=== PATIENT | female | born 1960 | race African-American/Black ===

== ENCOUNTER 2017-07-03 00:28 | Emergency (ER) | payer MEDICAID ==
[~2017-07-03] VITALS: Ht 165.1 cm; Wt 59.0 kg
[2017-07-03] MEDS ORDERED: ONDANSETRON HCL 4MG/2ML VIAL IV STA (02:02)
[2017-07-03] MEDS ORDERED: KETOROLAC 30MG/ML VIAL IV STA (02:02)
[2017-07-03] MEDS ORDERED: SODIUM CHLORIDE 0.9% 1,000 ML IV ONE (02:02)
[2017-07-03 02:20] LABS: BASOPHILS % 0.2 % (0.0-2.0); HEMATOCRIT. 40.8 % (36.0-48.0); HEMOGLOBIN. 13.5 g/dL (12.0-16.0); LYMPHOCYTES % 7.6 % (20.0-50.0); MEAN CORPUSCULAR HEMOGLOBIN 26.6 pg (28.0-32.0); MEAN CORPUSCULAR VOLUME 80.4 fL (81.0-99.0); MEAN PLATELET VOLUME 7.5 fl (7.4-10.4); MONOCYTES % 11.7 % (2.0-8.0); NEUTROPHILS % 80.5 % (40.0-76.0); PLATELET 384 x1000/uL (130-400); RED BLOOD CELL COUNT 5.07 mill/uL (4.2-5.4); RED CELL DISTRIBUTION WIDTH 15.2 % (11.6-14.6)
[2017-07-03 02:23] LABS: CHLORIDE 97 mEq/L (98-107); INR 1.1; PROTHROMBIN TIME 11.4 sec (9.4-11.6)
[2017-07-03 04:53] LABS: CLARITY URINE CLEAR (CLEAR); COLOR URINE YELLOW (YELLOW); KETONES URINE 1+ (NEGATIVE); LEUKOCYTE ESTERASE URINE 1+ (NEGATIVE); NITRITE URINE NEGATIVE (NEGATIVE); OCCULT BLOOD URINE 1+ (NEGATIVE); PROTEIN URINE NEGATIVE (NEGATIVE); SPECIFIC GRAVITY URINE 1.017 (1.005-1.030); UROBILINOGEN URINE 0.2 E.U./dL (0.2-1.0)
[2017-07-03 05:00] VITALS: BP 122/74
[2017-07-03] MEDS ORDERED: ALBUTEROL (0.083%) 2.5MG/3ML NEB HHN ONE (05:30)
== END 2017-07-03 06:15 | disposition home or self-care (01) ==
LOC: ER 03:46
DX: H20.00 Unspecified acute and subacute iridocyclitis (principal); R10.13 Epigastric pain; I10 Essential (primary) hypertension; F17.200 Nicotine dependence, unspecified, uncomplicated; Z88.0 Allergy status to penicillin
CPT/HCPCS: 36415; 74176; 80053; 81001; 83690; 85025; 85610; 96361; 96374; 96375; 99285; J1885; J2405; J7030; J7611; Z7610

== ENCOUNTER 2017-11-20 07:44 | Inpatient (IN) | payer MEDICAID ==
[~2017-11-20] VITALS: Ht 154.9 cm; Wt 53.1 kg
[2017-11-20] MEDS ORDERED: ALBU18HF2 IH (07:50)
[2017-11-20] MEDS ORDERED: FAMOTIDINE 20MG/2ML VIAL IV STA (08:00)
[2017-11-20] MEDS ORDERED: ONDANSETRON HCL 4MG/2ML VIAL IV STA (08:00)
[2017-11-20] MEDS ORDERED: SODIUM CHLORIDE 0.9% 1,000 ML IV ONE (08:00)
[2017-11-20] MEDS ORDERED: MORPHINE SULFATE 4 MG/ML CPJ (NOT FOR IM USE) IV STA (08:00)
[2017-11-20 08:36] LABS: BASOPHILS % 0.2 % (0.0-2.0); EOSINOPHILS % 0.1 % (0.0-5.0); HEMATOCRIT. 40.1 % (36.0-48.0); HEMOGLOBIN. 13.5 g/dL (12.0-16.0); MEAN CORPUSCULAR HEMOGLOBIN 26.1 pg (28.0-32.0); MEAN CORPUSCULAR VOLUME 77.6 fL (81.0-99.0); MEAN PLATELET VOLUME 7.1 fl (7.4-10.4); MONOCYTES % 3.9 % (2.0-8.0); NEUTROPHILS % 86.8 % (40.0-76.0); PLATELET 454 x1000/uL (130-400); RED BLOOD CELL COUNT 5.17 mill/uL (4.2-5.4); RED CELL DISTRIBUTION WIDTH 15.2 % (11.6-14.6)
[2017-11-20 08:42] LABS: CHLORIDE 94 mEq/L (98-107)
[2017-11-20 08:46] LABS: INR 1.1; PARTIAL THROMBOPLASTIN TIME 27.8 sec (23.4-31.0); PROTHROMBIN TIME 11.5 sec (9.4-11.6)
[2017-11-20 08:48] LABS: ETHANOL BLOOD < 10 mg/dL
[2017-11-20 09:32] LABS: CLARITY URINE CLEAR (CLEAR); COLOR URINE YELLOW (YELLOW); KETONES URINE TRACE (NEGATIVE); LEUKOCYTE ESTERASE URINE TRACE (NEGATIVE); NITRITE URINE NEGATIVE (NEGATIVE); OCCULT BLOOD URINE TRACE (NEGATIVE); PH URINE 7.5 (4.5-8.0); PROTEIN URINE NEGATIVE (NEGATIVE); SPECIFIC GRAVITY URINE 1.009 (1.005-1.030); UROBILINOGEN URINE 0.2 E.U./dL (0.2-1.0)
[2017-11-20 09:57] LABS: *AMPHETAMINES SCREEN URINE NEGATIVE (NEGATIVE); *BARBITURATES SCREEN URINE NEGATIVE (NEGATIVE); *BENZODIAZEPINES SCREEN URINE NEGATIVE (NEGATIVE)
[2017-11-20 09:58] LABS: CANNABINOID URINE SCREEN PRESUMTIVE POSITIVE (NEGATIVE); METHADONE URINE SCREEN NEGATIVE (NEGATIVE); OPIATES URINE SCREEN PRESUMTIVE POSITIVE (NEGATIVE); PHENCYCLIDINE URINE SCREEN NEGATIVE (NEGATIVE)
[2017-11-20 10:00] LABS: *COCAINE SCREEN URINE NEGATIVE (NEGATIVE)
[2017-11-20] MEDS ORDERED: IOHEXOL-300 100 ML BOTTLE ONE (10:15)
[2017-11-20] MEDS ORDERED: POTASSIUM CHLORIDE 20MEQ TABLET SR PO ONE (11:00)
[2017-11-20] MEDS ORDERED: SODIUM CHLORIDE 0.9% 1,000 ML IV SCH (11:27)
[2017-11-20] MEDS ORDERED: CLONIDINE 0.1MG TABLET PO PRN (11:30)
[2017-11-20] MEDS ORDERED: ONDANSETRON HCL 4MG/2ML VIAL IV PRN (11:30)
[2017-11-20] MEDS ORDERED: DOCUSATE SODIUM 100MG CAPSULE PO PRN (11:30)
[2017-11-20] MEDS ORDERED: IPRATROPIUM/ALBUTEROL 0.5-3(2.5)MG/3ML NEB INH PRN (11:30)
[2017-11-20] MEDS ORDERED: ACETAMINOPHEN 325MG TABLET PO PRN (11:30)
[2017-11-20] MEDS ORDERED: MAGNESIUM/ALUMINUM HYDROXIDE/SIMETHICONE 30ML UDC PO PRN (11:30)
[2017-11-20 12:15] VITALS: BP 166/87
[2017-11-20] MEDS: ENOXAPARIN 40MG/0.4ML SYR SUBCUT SCH (12:30)
[2017-11-20] MEDS ORDERED: CARI350T PO (12:39)
[2017-11-20] MEDS ORDERED: tylenol 3 PO (12:39)
[2017-11-20] MEDS ORDERED: AMLO5TAB4 PO (12:39)
[2017-11-20 13:00] VITALS: BP 166/87
[2017-11-20] MEDS ORDERED: LORAZEPAM 2MG/ML CPJ IV PRN (13:15)
[2017-11-20] MEDS: HYDROCODONE/ACETAMINOPHEN 5/325MG TABLET PO PRN (13:47)
[2017-11-20] MEDS: NICOTINE 14MG PATCH TD SCH (13:48)
[2017-11-20 16:00] VITALS: BP 157/84
[2017-11-20] MEDS ORDERED: PNEUMOCOCCAL 23-VAL P-SAC VAC 0.5 ML IM ONE (16:45)
[2017-11-20] MEDS ORDERED: CYCLOBENZAPRINE 10MG TABLET PO PRN (17:00)
[2017-11-20 17:23] LABS: CREATINE KINASE 205 IU/L (26-192)
[2017-11-20 17:24] LABS: CREATINE KINASE MB FRACTION 1.4 ng/mL (0.5-3.6)
[2017-11-20] MEDS: MORPHINE SULFATE 4 MG/ML CPJ (NOT FOR IM USE) IV PRN (19:54)
[2017-11-20 20:00] VITALS: BP 135/73
[2017-11-20] MEDS: BUDESONIDE 0.5MG/2ML NEB HHN SCH (21:20)
[2017-11-20] MEDS: IPRATROPIUM/ALBUTEROL 0.5-3(2.5)MG/3ML NEB HHN SCH ×2 (21:21→22:10)
[2017-11-21] VITALS (14 sets, daily range): BP systolic 108–186; BP diastolic 57–111
[2017-11-21 00:02] LABS: CREATINE KINASE 167 IU/L (26-192)
[2017-11-21 00:03] LABS: CREATINE KINASE MB FRACTION 0.9 ng/mL (0.5-3.6)
[2017-11-21] MEDS: MORPHINE SULFATE 4 MG/ML CPJ (NOT FOR IM USE) IV PRN ×3 (00:06→16:19)
[2017-11-21] MEDS: IPRATROPIUM/ALBUTEROL 0.5-3(2.5)MG/3ML NEB HHN SCH ×5 (01:10→22:10)
[2017-11-21 06:57] LABS: BASOPHILS % 0.2 % (0.0-2.0); HEMATOCRIT. 38.1 % (36.0-48.0); HEMOGLOBIN. 12.9 g/dL (12.0-16.0); LYMPHOCYTES % 11.2 % (20.0-50.0); MEAN CORPUSCULAR HEMOGLOBIN 26.3 pg (28.0-32.0); MEAN CORPUSCULAR VOLUME 77.7 fL (81.0-99.0); MEAN PLATELET VOLUME 7.1 fl (7.4-10.4); MONOCYTES % 6.4 % (2.0-8.0); NEUTROPHILS % 82.2 % (40.0-76.0); PLATELET 426 x1000/uL (130-400); RED CELL DISTRIBUTION WIDTH 15.5 % (11.6-14.6)
[2017-11-21 06:59] LABS: CHLORIDE 95 mEq/L (98-107)
[2017-11-21 07:07] LABS: LDL CHOLESTEROL 121 mg/dL (5-100)
[2017-11-21 07:08] LABS: HDL CHOLESTEROL 66 mg/dL (40-59)
[2017-11-21] MEDS: BUDESONIDE 0.5MG/2ML NEB HHN SCH ×2 (07:52→22:10)
[2017-11-21] MEDS: ENOXAPARIN 40MG/0.4ML SYR SUBCUT SCH (08:01)
[2017-11-21] MEDS ORDERED: SODIUM BICARBONATE 4% (2.4MEQ) 5ML VIAL IV ONE (08:57)
[2017-11-21] MEDS ORDERED: LIDOCAINE HCL/PF 1% 10 MG/ML 5ML VIAL ONE (08:59)
[2017-11-21] MEDS ORDERED: FENTANYL CITRATE/PF 50MCG/ML 2ML VIAL ONE (09:39)
[2017-11-21] MEDS ORDERED: FENTANYL CITRATE/PF 50MCG/ML 2ML VIAL IV ONE (10:00)
[2017-11-21] MEDS: NICOTINE 14MG PATCH TD SCH (11:36)
[2017-11-21] MEDS: HYDROCODONE/ACETAMINOPHEN 5/325MG TABLET PO PRN ×3 (11:36→23:21)
[2017-11-21] MEDS ORDERED: POTASSIUM CHLORIDE 20MEQ TABLET SR PO SCH (12:00)
[2017-11-21 12:43] LABS: CHLORIDE 95 mEq/L (98-107)
[2017-11-21] MEDS: SODIUM CHL 0.45% + KCL 20MEQ/L 1,000 ML IV SCH ×2 (16:17→23:00)
[2017-11-21] MEDS: AMLODIPINE 5MG TABLET PO SCH (18:53)
[2017-11-21] MEDS ORDERED: IOHEXOL-300 100 ML BOTTLE ONE (20:32)
[2017-11-21] MEDS: ATORVASTATIN CALCIUM 40MG TABLET PO SCH (21:11)
[2017-11-22 00:09] VITALS: BP 125/65
[2017-11-22] MEDS: IPRATROPIUM/ALBUTEROL 0.5-3(2.5)MG/3ML NEB HHN SCH ×3 (02:25→20:46)
[2017-11-22 04:00] VITALS: BP 166/96
[2017-11-22] MEDS: HYDROCODONE/ACETAMINOPHEN 5/325MG TABLET PO PRN ×3 (05:02→13:43)
[2017-11-22] MEDS: SODIUM CHL 0.45% + KCL 20MEQ/L 1,000 ML IV SCH ×3 (05:27→20:05)
[2017-11-22 06:55] LABS: BASOPHILS % 0.5 % (0.0-2.0); EOSINOPHILS % 1.5 % (0.0-5.0); HEMATOCRIT. 37.2 % (36.0-48.0); HEMOGLOBIN. 12.3 g/dL (12.0-16.0); LYMPHOCYTES % 39.9 % (20.0-50.0); MEAN CORPUSCULAR HEMOGLOBIN 26.4 pg (28.0-32.0); MEAN CORPUSCULAR VOLUME 79.6 fL (81.0-99.0); MEAN PLATELET VOLUME 7.2 fl (7.4-10.4); MONOCYTES % 10.1 % (2.0-8.0); PLATELET 382 x1000/uL (130-400); RED BLOOD CELL COUNT 4.67 mill/uL (4.2-5.4); RED CELL DISTRIBUTION WIDTH 15.3 % (11.6-14.6)
[2017-11-22 07:38] LABS: CHLORIDE 99 mEq/L (98-107)
[2017-11-22 08:00] VITALS: BP 124/74
[2017-11-22] MEDS: ENOXAPARIN 40MG/0.4ML SYR SUBCUT SCH (08:36)
[2017-11-22] MEDS: AMLODIPINE 5MG TABLET PO SCH (08:42)
[2017-11-22] MEDS: NICOTINE 14MG PATCH TD SCH (10:38)
[2017-11-22 12:00] VITALS: BP 112/69
[2017-11-22] MEDS: BUDESONIDE 0.5MG/2ML NEB HHN SCH ×2 (12:45→20:46)
[2017-11-22 16:00] VITALS: BP 124/73
[2017-11-22] MEDS: OXYCODONE HCL/ACETAMINOPHEN 5/325MG TABLET PO PRN (17:07)
[2017-11-22 20:01] VITALS: BP 125/77
[2017-11-22] MEDS: MORPHINE SULFATE 4 MG/ML CPJ (NOT FOR IM USE) IV PRN (20:05)
[2017-11-22] MEDS: ATORVASTATIN CALCIUM 40MG TABLET PO SCH (20:05)
[2017-11-23] VITALS (8 sets, daily range): BP systolic 107–143; BP diastolic 65–92
[2017-11-23] MEDS: OXYCODONE HCL/ACETAMINOPHEN 5/325MG TABLET PO PRN ×5 (00:36→23:07)
[2017-11-23] MEDS: IPRATROPIUM/ALBUTEROL 0.5-3(2.5)MG/3ML NEB HHN SCH ×3 (00:38→20:56)
[2017-11-23 07:08] LABS: BASOPHILS % 0.5 % (0.0-2.0); LYMPHOCYTES % 33.5 % (20.0-50.0); MEAN CORPUSCULAR HEMOGLOBIN 26.4 pg (28.0-32.0); MEAN CORPUSCULAR VOLUME 79.1 fL (81.0-99.0); MEAN PLATELET VOLUME 7.2 fl (7.4-10.4); MONOCYTES % 8.8 % (2.0-8.0); NEUTROPHILS % 54.2 % (40.0-76.0); PLATELET 355 x1000/uL (130-400); RED BLOOD CELL COUNT 4.17 mill/uL (4.2-5.4); RED CELL DISTRIBUTION WIDTH 15.7 % (11.6-14.6)
[2017-11-23 08:00] LABS: CHLORIDE 104 mEq/L (98-107)
[2017-11-23] MEDS: AMLODIPINE 5MG TABLET PO SCH (08:52)
[2017-11-23] MEDS: NICOTINE 14MG PATCH TD SCH (08:53)
[2017-11-23] MEDS: ENOXAPARIN 40MG/0.4ML SYR SUBCUT SCH (08:53)
[2017-11-23] MEDS: BUDESONIDE 0.5MG/2ML NEB HHN SCH (13:00)
[2017-11-23] MEDS: MORPHINE SULFATE 4 MG/ML CPJ (NOT FOR IM USE) IV PRN ×2 (14:31→21:16)
[2017-11-23] MEDS: SODIUM CHL 0.45% + KCL 20MEQ/L 1,000 ML IV SCH (15:21)
[2017-11-23] MEDS ORDERED: NICO-681 TD (16:31)
[2017-11-23] MEDS ORDERED: LIP40 PO (16:31)
[2017-11-23] MEDS ORDERED: AMLO5TAB88 PO (16:31)
[2017-11-23] MEDS: ATORVASTATIN CALCIUM 40MG TABLET PO SCH (21:07)
== END 2017-11-23 23:25 | disposition home or self-care (01) | DRG 121 ==
LOC: ER 07:44 → 7WST 11:02 → ENRESERV 11:27
PROVIDERS: ADMIT Internal Medicine; ATTEND Internal Medicine
PROC: 0BDC4ZX Extraction of Right Upper Lung Lobe, Percutaneous Endoscopic Approach, Diagnostic (ICD-10-PCS; principal; 2017-11-21)
DX: C34.11 Malignant neoplasm of upper lobe, right bronchus or lung (principal); K86.2 Cyst of pancreas; I48.0 Paroxysmal atrial fibrillation; K86.89 Other specified diseases of pancreas; K86.1 Other chronic pancreatitis; I10 Essential (primary) hypertension; R59.0 Localized enlarged lymph nodes; R91.8 Other nonspecific abnormal finding of lung field; J45.909 Unspecified asthma, uncomplicated; M54.30 Sciatica, unspecified side; G89.29 Other chronic pain; R63.4 Abnormal weight loss; E87.6 Hypokalemia; D25.9 Leiomyoma of uterus, unspecified; M54.9 Dorsalgia, unspecified; F12.90 Cannabis use, unspecified, uncomplicated; R19.7 Diarrhea, unspecified; Z60.2 Problems related to living alone; K21.9 Gastro-esophageal reflux disease without esophagitis; F17.210 Nicotine dependence, cigarettes, uncomplicated; Z80.0 Family history of malignant neoplasm of digestive organs; Z71.6 Tobacco abuse counseling; Z68.22 Body mass index [BMI] 22.0-22.9, adult; Z88.0 Allergy status to penicillin; Z79.899 Other long term (current) drug therapy
CPT/HCPCS: 32405; 36415; 71045; 71260; 74177; 74181; 77012; 80048; 80053; 80061; 80305; 81003; 82378; 82550; 82553; 83036; 83690; 83735; 84443; 84484; 85025; 85610; 85730; 86301; 87040; 87086; 88172; 88173; 93005; 93970; 94640; 96374; 96375; 99291; G0482; J1650; J2270; J2405; J3010; J3480; J3490; J7030; J7620; J7626; Q9967

== ENCOUNTER 2018-01-08 23:40 | Emergency (ER) | payer MEDICAID ==
[~2018-01-08] VITALS: Ht 152.4 cm; Wt 41.0 kg
[~2018-01-08 23:40] MED LIST: AMLO5TAB88 PO; LIP40 PO; NICO-681 TD
[2018-01-09] MEDS ORDERED: MORPHINE SULFATE 4 MG/ML CPJ (NOT FOR IM USE) IV STA (00:34)
[2018-01-09] MEDS ORDERED: ONDANSETRON HCL 4MG/2ML VIAL IV STA (00:34)
[2018-01-09] MEDS ORDERED: SODIUM CHLORIDE 0.9% 1,000 ML IV ONE (00:34)
[2018-01-09 01:49] LABS: HEMATOCRIT. 34.6 % (36.0-48.0); HEMOGLOBIN. 11.5 g/dL (12.0-16.0); MEAN PLATELET VOLUME 7.1 fl (7.4-10.4); PLATELET 576 x1000/uL (130-400); RED BLOOD CELL COUNT 4.43 mill/uL (4.2-5.4); RED CELL DISTRIBUTION WIDTH 17.1 % (11.6-14.6)
[2018-01-09 01:52] LABS: CHLORIDE 97 mEq/L (98-107)
[2018-01-09] MEDS ORDERED: FENTANYL CITRATE/PF 50MCG/ML 2ML VIAL IV ONE (02:30)
[2018-01-09 03:30] LABS: PLATELET ESTIMATE INCREASED
[2018-01-09] MEDS ORDERED: IOHEXOL-300 100 ML BOTTLE ONE (03:45)
[2018-01-09] MEDS ORDERED: METOCLOPRAMIDE HCL 10MG/2ML VIAL IV ONE (04:30)
[2018-01-09 06:14] VITALS: BP 169/93
[2018-01-09 07:30] LABS: CLARITY URINE CLEAR (CLEAR); COLOR URINE YELLOW (YELLOW); KETONES URINE 2+ (NEGATIVE); LEUKOCYTE ESTERASE URINE NEGATIVE (NEGATIVE); NITRITE URINE NEGATIVE (NEGATIVE); OCCULT BLOOD URINE TRACE (NEGATIVE); PH URINE 6.5 (4.5-8.0); PROTEIN URINE TRACE (NEGATIVE); SPECIFIC GRAVITY URINE 1.046 (1.005-1.030); UROBILINOGEN URINE 0.2 E.U./dL (0.2-1.0)
== END 2018-01-09 06:16 | disposition home or self-care (01) ==
LOC: ER 23:40
DX: R10.84 Generalized abdominal pain (principal); C34.90 Malignant neoplasm of unspecified part of unspecified bronchus or lung; N13.4 Hydroureter; R59.0 Localized enlarged lymph nodes; I10 Essential (primary) hypertension; J45.909 Unspecified asthma, uncomplicated; F12.10 Cannabis abuse, uncomplicated; Z88.0 Allergy status to penicillin
CPT/HCPCS: 36415; 74177; 80053; 81003; 83605; 83690; 85025; 96361; 96374; 96375; 99285; J2270; J2405; J2765; J3010; J7030; Q9967; Z7610

== ENCOUNTER 2018-08-27 03:39 | Inpatient (IN) | payer MEDICAID ==
[~2018-08-27] VITALS: Ht 152.4 cm; Wt 44.9 kg
[2018-08-27] MEDS ORDERED: MORPHINE SULFATE 4 MG/ML CPJ (NOT FOR IM USE) IV STA (04:04)
[2018-08-27] MEDS ORDERED: ONDANSETRON HCL 4MG/2ML INJ IV STA (04:04)
[2018-08-27] MEDS ORDERED: SODIUM CHLORIDE 0.9% 1,000 ML IV ONE (04:04)
[2018-08-27 05:45] LABS: HEMOGLOBIN. 9.9 g/dL (12.0-16.0); MEAN CORPUSCULAR HEMOGLOBIN 28.8 pg (28.0-32.0); MEAN CORPUSCULAR VOLUME 87.6 fL (81.0-99.0); MEAN PLATELET VOLUME 7.2 fl (7.4-10.4); PLATELET 212 x1000/uL (130-400); RED BLOOD CELL COUNT 3.43 mill/uL (4.2-5.4); RED CELL DISTRIBUTION WIDTH 15.4 % (11.6-14.6)
[2018-08-27] MEDS ORDERED: LEVOFLOXACIN 750MG PREMIX 150 ML IV ONE (05:45)
[2018-08-27] MEDS ORDERED: METRONIDAZOLE 500 MG PREMIX 100 ML IV ONE (05:45)
[2018-08-27 05:48] LABS: CLARITY URINE CLEAR (CLEAR); COLOR URINE YELLOW (YELLOW); KETONES URINE NEGATIVE (NEGATIVE); LEUKOCYTE ESTERASE URINE 1+ (NEGATIVE); NITRITE URINE NEGATIVE (NEGATIVE); OCCULT BLOOD URINE TRACE (NEGATIVE); PH URINE 7.5 (4.5-8.0); PROTEIN URINE TRACE (NEGATIVE); SPECIFIC GRAVITY URINE 1.007 (1.005-1.030); UROBILINOGEN URINE 0.2 E.U./dL (0.2-1.0)
[2018-08-27 05:49] LABS: INR 1.1; PROTHROMBIN TIME 10.9 sec (9.1-11.1)
[2018-08-27 05:52] LABS: CHLORIDE 102 mEq/L (98-107)
[2018-08-27] MEDS ORDERED: POTASSIUM CHLORIDE 20MEQ TABLET SR PO ONE (06:00)
[2018-08-27] MEDS ORDERED: MORPHINE SULFATE 4 MG/ML CPJ (NOT FOR IM USE) IV ONE (06:15)
[2018-08-27 06:17] LABS: PLATELET ESTIMATE NORMAL
[2018-08-27 10:00] VITALS: BP 185/98
[2018-08-27] MEDS: SODIUM CHLORIDE 0.9% 1,000 ML IV SCH (12:00)
[2018-08-27] MEDS ORDERED: ONDANSETRON HCL 4MG/2ML INJ IV PRN (12:00)
[2018-08-27 13:32] LABS: CHLORIDE 99 mEq/L (98-107)
[2018-08-27] MEDS: PANTOPRAZOLE 40MG DR TABLET PO SCH (13:58)
[2018-08-27 15:31] LABS: HEMATOCRIT. 31.2 % (36.0-48.0); HEMOGLOBIN. 10.3 g/dL (12.0-16.0); MEAN CORPUSCULAR HEMOGLOBIN 28.7 pg (28.0-32.0); MEAN PLATELET VOLUME 7.2 fl (7.4-10.4); PLATELET 214 x1000/uL (130-400); RED BLOOD CELL COUNT 3.58 mill/uL (4.2-5.4); RED CELL DISTRIBUTION WIDTH 15.3 % (11.6-14.6)
[2018-08-27] MEDS: HYDROMORPHONE HCL/PF 2MG/ML CPJ IV PRN ×2 (17:19→23:01)
[2018-08-27] MEDS: AMLODIPINE 5MG TABLET PO SCH (17:19)
[2018-08-27 18:13] VITALS: BP 130/75
[2018-08-27 20:00] VITALS: BP 127/88
[2018-08-27 20:52] LABS: PLATELET ESTIMATE NORMAL
[2018-08-27] MEDS: ATORVASTATIN CALCIUM 20MG TABLET PO SCH (22:13)
[2018-08-28] VITALS: BP 153/83
[2018-08-28] MEDS: SODIUM CHLORIDE 0.9% 1,000 ML IV SCH ×2 (01:38→14:18)
[2018-08-28] MEDS: METRONIDAZOLE 500MG TABLET PO SCH ×4 (01:40→21:00)
[2018-08-28 04:00] VITALS: BP 156/91
[2018-08-28] MEDS: HYDROMORPHONE HCL/PF 2MG/ML CPJ IV PRN ×5 (04:49→22:34)
[2018-08-28 08:00] VITALS: BP 143/93
[2018-08-28] MEDS: AMLODIPINE 5MG TABLET PO SCH (09:50)
[2018-08-28] MEDS: PANTOPRAZOLE 40MG DR TABLET PO SCH (09:50)
[2018-08-28] MEDS ORDERED: HYDROMORPHONE HCL/PF 2MG/ML CPJ IV PRN (11:15)
[2018-08-28] MEDS: LEVOFLOXACIN 500MG TABLET PO SCH (11:38)
[2018-08-28 12:00] VITALS: BP 157/93
[2018-08-28 16:00] VITALS: BP 115/74
[2018-08-28 20:00] VITALS: BP 138/72
[2018-08-28] MEDS: ATORVASTATIN CALCIUM 20MG TABLET PO SCH (21:00)
[2018-08-28] MEDS: MORPHINE SULFATE 15MG TABLET SR PO SCH (21:01)
[2018-08-29] VITALS (7 sets, daily range): BP systolic 104–146; BP diastolic 66–75
[2018-08-29] MEDS: SODIUM CHLORIDE 0.9% 1,000 ML IV SCH ×2 (02:48→16:54)
[2018-08-29] MEDS: HYDROMORPHONE HCL/PF 2MG/ML CPJ IV PRN ×3 (06:33→14:57)
[2018-08-29] MEDS: METRONIDAZOLE 500MG TABLET PO SCH ×2 (06:38→14:57)
[2018-08-29] MEDS: PANTOPRAZOLE 40MG DR TABLET PO SCH (08:57)
[2018-08-29] MEDS: AMLODIPINE 5MG TABLET PO SCH (08:57)
[2018-08-29] MEDS: MORPHINE SULFATE 15MG TABLET SR PO SCH (08:57)
[2018-08-29] MEDS: LEVOFLOXACIN 500MG TABLET PO SCH (10:29)
== END 2018-08-29 17:37 | disposition home or self-care (01) | DRG 463 ==
LOC: ER 03:39 → 7WST 05:34 → EDBEDREQTM 05:35 → EDBEDREQ 05:35 → ENRESERV 07:32
PROVIDERS: ADMIT Internal Medicine; ATTEND Internal Medicine
DX: N39.0 Urinary tract infection, site not specified (principal); E46 Unspecified protein-calorie malnutrition; D64.9 Anemia, unspecified; K52.9 Noninfective gastroenteritis and colitis, unspecified; I10 Essential (primary) hypertension; J45.909 Unspecified asthma, uncomplicated; Z85.038 Personal history of other malignant neoplasm of large intestine; Z85.118 Personal history of other malignant neoplasm of bronchus and lung; Z87.891 Personal history of nicotine dependence; Z92.21 Personal history of antineoplastic chemotherapy; Z92.3 Personal history of irradiation; Z88.0 Allergy status to penicillin; Z68.1 Body mass index [BMI] 19.9 or less, adult
CPT/HCPCS: 36415; 71045; 74176; 80048; 83605; 96365; 96367; 96375; 96376; 99285; A6261; J1170; J1956; J2270; J2405; J3490; J7030